=== PATIENT | male | born 1995 | race Two or more races ===

== ENCOUNTER 2022-10-01 09:19 | Emergency (ER) | payer BC, OTHER ==
[~2022-10-01] VITALS: Ht 167.6 cm; Wt 112.6 kg
[2022-10-01 09:54] LABS: Urine Bacteria NONE SEEN /hpf (None Seen); Urine Blood 3+ /uL (Negative); Urine Mucus FEW (None Seen); Urine Specific Gravity 1.027 (1.001-1.035); Urine WBC 7 /hpf (0 - 3)
[2022-10-01 10:22] LABS: Albumin 4.3 g/dL (3.4-5.0); Calcium 9.1 mg/dL (8.5-10.1); Potassium 3.9 mmol/L (3.5-5.1)
[2022-10-01 10:25] LABS: BUN/Creatinine Ratio 14.4 (10.0-20.0); Bilirubin, Total 0.9 mg/dL (0.2-1.0); Total Protein 8.4 g/dL (6.4-8.2)
[2022-10-01 10:39] LABS: Basophils # (auto) 0.1 10 ^3/uL (0-0.2); Basophils % (auto) 0.9 % (0.0-2.0); Eosinophils # (auto) 0.2 10 ^3/uL (0-0.8); Eosinophils % (auto) 2.2 % (0.0-7.0); Hematocrit 49.2 % (41.0-53.0); Hemoglobin 16.5 g/dL (13.5-17.5); Lymphocytes # (auto) 1.4 10 ^3/uL (0.4-5.4); Lymphocytes % (auto) 13.8 % (10.0-50.0); Mean Corpuscular Hemoglobin 29.6 pg (28.0-32.0); Mean Corpuscular Hgb Conc. 33.5 g/dL (32.0-36.0); Mean Corpuscular Volume 88.3 fL (80.0-100.0); Monocytes # (auto) 0.6 10 ^3/uL (0-1.3); Monocytes % (auto) 5.7 % (0.0-12.0); Neutrophils # (auto) 7.7 10 ^3/uL (1.6-8.6); Neutrophils % (auto) 77.4 % (37.0-80.0); Nucleated Red Blood Cells % 0.2 %; Red Blood Cells 5.57 10^6/uL (4.5-5.90); Red Cell Distribution Width 11.9 % (11.8-14.3)
[2022-10-01] MEDS ORDERED: SODIUM CHLORIDE 0.9% 1,000 ML IV ONE (16:45)
[2022-10-01] MEDS ORDERED: ONDANSETRON HCL 4 MG/2 ML VIAL IV ONE (16:45)
[2022-10-01] MEDS ORDERED: MORPHINE SULFATE 4 MG/ML SYR/VIAL IV ONE (16:45)
[2022-10-01] MEDS ORDERED: IBU600T PO (16:59)
[2022-10-01] MEDS ORDERED: CEPH500C PO (16:59)
[2022-10-01] MEDS ORDERED: ZOFR4T PO (16:59)
[2022-10-01 17:54] VITALS: BP 149/89
== END 2022-10-01 17:56 | disposition home or self-care (01) ==
LOC: ER 09:19
DX: N20.0 Calculus of kidney (principal); N13.4 Hydroureter; R10.32 Left lower quadrant pain; R10.31 Right lower quadrant pain; K40.20 Bilateral inguinal hernia, without obstruction or gangrene, not specified as recurrent; K76.0 Fatty (change of) liver, not elsewhere classified; N39.0 Urinary tract infection, site not specified; Z88.0 Allergy status to penicillin
CPT/HCPCS: 36415; 74176; 76775; 80053; 81001; 85025; 96361; 96374; 99285; J2405; J7030